=== PATIENT | female | born 1960 | race Caucasian/White ===

== ENCOUNTER 2019-07-18 11:04 | Day surgery (SDC) | payer BC ==
[2019-07-17 10:20] VITALS: BMI 34.4
[~2019-07-18 11:04] MED LIST: Dexamethasone 20 MG/5 ML VIAL ONE; Glycopyrrolate 0.2 MG/ML 5 ML SYRINGE ONE; Ketorolac Tromethamine 30 MG/ML VIAL ONE; Lidocaine 1% PF 5 ML VIAL ONE; Ondansetron PF 4 MG/2 ML Vial ONE; PROPOFOL 200 MG/20 ML VIAL ONE; Rocuronium Bromide 10 MG/ML (10ML VIAL) ONE; diphenhydrAMINE 50 MG/ML VIAL ONE; ePHEDrine/0.9% NaCl/PF SYRINGE 50 mg/10 ml ONE
[2019-07-18] MEDS ORDERED: Iothalamate Meglumine 60% 50 ML VIAL FS ONE (11:14)
[2019-07-18] MEDS ORDERED: Lidocaine 1% w/Epinephrine 1:100K 20 ML VIAL ONE (11:19)
[2019-07-18] MEDS ORDERED: Bupivacaine 0.25% HCL 30 ML VIAL ONE (11:19)
[2019-07-18] MEDS ORDERED: HYDROmorphone 0.5 MG/0.5 ML SYRINGE ONE (11:23)
[2019-07-18] MEDS ORDERED: Fentanyl 100 MCG/2 ML VIAL ONE (11:23)
[2019-07-18 11:31] LABS: #Basophils 0.1 thou/uL (0.0-0.2); #Lymphocytes 2.2 thou/uL (1.20-3.40); #Monocytes 0.4 thou/uL (0.11-0.59); #Neutrophils 4.1 thou/uL (1.40-6.50); %Basophils 1.2 % (0.0-1.0); %Eosinophils 0.7 % (0.0-10.0); %Lymphocytes 31.9 % (21.0-51.0); %Monocytes 6.1 % (0.0-10.0); %Neutrophils 60.1 % (42.0-75.0); Hemoglobin 15.4 g/dL (12.0-16.0); Mean Corpuscular HGB CONC 34.2 g/dL (32.0-36.0); Mean Corpuscular Hemoglobin 32.7 pg (27.0-31.0); Mean Corpuscular Volume 95.4 fL (78.0-98.0); Mean Platelet Volume 7.5 fL (7.4-10.4); Platelet Count 176 thou/uL (130-400); RBC Distribution Width 12.1 % (11.5-14.5); Red Blood Cell (RBC) Count 4.73 mill/uL (4.20-5.40); White Blood Cell (WBC) Count 6.9 thou/uL (4.8-10.8)
[2019-07-18] MEDS ORDERED: ceFOXitin 2 GM/50 ML Duplex BAG ONE (11:42)
[2019-07-18] MEDS ORDERED: Sodium Chloride 0.9% 0 ML ONE (11:49)
[2019-07-18 11:55] LABS: ALT (SGPT) 23 U/L (8-55); AST (SGOT) 17 U/L (5-34); Albumin 4.8 g/dL (3.5-5.0); Alkaline Phosphatase 98 U/L (40-110); Anion Gap 12 mmol/L (10-20); BUN (Urea Nitrogen) 15 mg/dL (9.8-20.1); Bilirubin, Direct 0.2 mg/dL (0.1-0.3); Bilirubin, Total 0.7 mg/dL (0.2-1.2); Calc. Creatinine Clearance 120 mL/min (70-130); Calcium 9.9 mg/dL (7.8-10.44); Carbon Dioxide 28 mmol/L (22-29); Chloride 106 mmol/L (98-107); Estimated GFR-MDRD 80; Glucose 98 mg/dL (70-105); Potassium 4.2 mmol/L (3.5-5.1); Protein, Total 7.7 g/dL (6.0-8.3); Sodium 142 mmol/L (136-145)
[2019-07-18] MEDS ORDERED: Meperidine HCl/PF 25 MG/ML VIAL SLOW IVP PRN (12:15)
[2019-07-18] MEDS ORDERED: Promethazine HCl 25 MG/ML VIAL SLOW IVP PRN (12:15)
[2019-07-18] MEDS ORDERED: HYDROmorphone 2 MG/ML VIAL SLOW IVP PRN (12:15)
--- NOTE | 2019-07-18 14:14 | OP ---
DATE OF PROCEDURE: 07/18/2019 PREOPERATIVE DIAGNOSIS: Symptomatic cholelithiasis with elevated liver function. PROCEDURE PERFORMED: Laparoscopic cholecystectomy, attempted intraoperative cholangiogram, wedge liver biopsy. INDICATIONS: A 58-year-old female, who has been having episodic right upper quadrant pain. Ultrasound showed cholelithiasis. She had some mild elevation of her liver tests. FINDINGS: Very small caliber cystic duct. I could not get it cannulated. I tried the Arrow catheter, Taut catheter, even tried threading a guidewire down it, it was so small, I could not get it to pass, so that portion was aborted. DESCRIPTION OF PROCEDURE: After informed consent was obtained, the patient was taken to the operating room, given general endotracheal anesthesia, placed in the supine position. Abdomen was prepped and draped in usual fashion. Local anesthesia was infiltrated subcutaneously and deep. Subumbilical incision was performed. Subcu divided sharply. The fascia was grasped with 2 stay sutures of 0 Vicryl placed in each side of midline. Midline was incised. Digital palpation revealed no local adhesions. A blunt 12-mm trocar was inserted. Pneumoperitoneum was created to a pressure of 15 mmHg. A 0-degree laparoscope was inserted under direct vision. Three 5-mm ports were placed subcostally. The gallbladder was grasped, advanced superiorly. The peritoneum was dissected to expose the cystic duct and cystic artery in critical view. A clip was placed at the base of the gallbladder on the cystic duct. An incision made in the cystic duct. An attempt made to thread the Arrow cholangiocatheter. I could only get it in about 2 mm. I milked the duct back to see if there were any kind a stones obstructing it, but nothing could be brought back. I tried again, no success. I changed to a Taut rigid catheter. I was able to get a little bit of the tip in, attempted that injecting saline, it would not go. So, trying to thread a J-wire down the cystic duct, the J-wire would not go, so wand up just aborting this procedure. Triply ligated and dividing the small cystic duct. The artery was triply ligated with hemoclips and divided. The gallbladder was removed from its fossa utilizing electrocautery. Then, a wedge liver biopsy was performed sharply with Metzenbaum scissors. Hemostasis was achieved with electrocautery. The liver piece and the gallbladder were placed in an endosac and removed from the abdomen in the endosac, sent to Pathology for further analysis. Hemostasis was assured. The abdomen was irrigated. Irrigation fluid removed. Trocars and retractors were removed. The fascia was closed with interrupted 0 Vicryl suture. The skin was closed with interrupted 4-0 Rapide. Dermabond applied. The patient tolerated the procedure well, transferred to Recovery in good condition. Sponge and needle count verified correct x2. Job ID: [id number]
--- NOTE | 2019-07-21 18:56 | EKG ---
Test Reason : PREOP Blood Pressure : / mmHG Vent. Rate : 050 BPM Atrial Rate : 050 BPM P-R Int : 178 ms QRS Dur : 092 ms QT Int : 438 ms P-R-T Axes : 055 045 056 degrees QTc Int : 399 ms Sinus bradycardia Otherwise normal ECG No previous ECGs available Confirmed by SHERRY APPLE, DR. Rivera ([id number]) on 07/21/2019 6:56:29 PM Referred By: CRISTINA Confirmed By:DR. Nicole POWELL MD
== END 2019-07-18 15:15 | disposition home or self-care (01) ==
LOC: SDC 11:04
PROVIDERS: ATTEND Surgery
PROC: 0FT44ZZ Resection of Gallbladder, Percutaneous Endoscopic Approach (ICD-10-PCS; principal; 2019-07-18)
PROC: 0FB04ZX Excision of Liver, Percutaneous Endoscopic Approach, Diagnostic (ICD-10-PCS; principal; 2019-07-18)
DX: K80.10 Calculus of gallbladder with chronic cholecystitis without obstruction (principal); K76.0 Fatty (change of) liver, not elsewhere classified; E78.5 Hyperlipidemia, unspecified; F32.9 Major depressive disorder, single episode, unspecified; Z79.1 Long term (current) use of non-steroidal anti-inflammatories (NSAID); Z79.899 Other long term (current) drug therapy; Z88.2 Allergy status to sulfonamides; Z88.8 Allergy status to other drugs, medicaments and biological substances
CPT/HCPCS: 36415; 80048; 80076; 85025; 88304; 88307; 88313; 93005; 93010; J0690; J0694; J1100; J1170; J1200; J1610; J1885; J2001; J2405; J2704; J3010; J3490; S0020